=== PATIENT | female | born 1995 | race American Indian/Alaskan Native ===

== ENCOUNTER 2018-06-21 11:38 | Emergency (ER) | payer OTHER ==
--- NOTE | 2018-06-21 11:48 | Emergency Department Report ---
Blank Doc - Documentation Documentation: This is a 22-year-old female that presents with right foot pain and swelling. Was in the car of a [employer] salesperson for tendon injury and stress fracture. Stated today was having some tingling sensation and swelling. This initial assessment/diagnostic orders/clinical plan/treatment(s) is/are subject to change based on patient's health status, clinical progression and re- assessment by fellow clinical providers in the ED. Further treatment and workup at subsequent clinical providers discretion. Patient/guardians urged not to elope from the ED as their condition may be serious if not clinically assessed and managed. Initial orders include: 1- Patient sent to [facility] for further evaluation and treatment 2- xray
[2018-06-21 11:50] VITALS: BP 145/98
--- NOTE | 2018-06-21 12:51 | XRay Report ---
RIGHT ANKLE: Pain The bones are well mineralized with normal bony contours and joint alignment. No fractures or destructive changes are noted and the adjacent soft tissues are normal. IMPRESSION: Normal study. RIGHT FOOT: Pain The bony architecture is intact. Bony alignment is normal. No soft tissue abnormalities are seen. The joint spaces appear preserved. IMPRESSION: Normal right foot.
== END 2018-06-21 11:50 | disposition left against medical advice (07) ==
LOC: ED 11:38
DX: M79.671 Pain in right foot (principal); Z53.21 Procedure and treatment not carried out due to patient leaving prior to being seen by health care provider